=== PATIENT | female | born 1945 | race Caucasian/White ===

== ENCOUNTER 2019-09-07 15:57 | Emergency (ER) | payer MEDICARE ==
[~2019-09-07 15:57] MED LIST: EPINEPHrine 10 ML SYRINGE (0.1 MG/ML) ONE; SODIUM BICARB 8.4% 50 ML SYR (1 MEQ/ML) ONE
--- NOTE | 2019-09-07 16:27 | XR ---
EXAMINATION TYPE: XR chest 1V DATE OF EXAM: 09/07/2019 COMPARISON: NONE HISTORY: Cardiac arrest. TECHNIQUE: Single AP portable frontal supine view of the chest is obtained. FINDINGS: There is endotracheal tube at aortic knob level approximately 2 to 3 cm above ajit. There is orogastric tube terminating below diaphragm. Artifact from overlying board is present. Low lung volumes noted. No suspicious focal airspace opacit y, pleural effusion, or pneumothorax. Cardiac silhouette size upper limits of normal with atheroscler otic aorta. Osseous structures intact. IMPRESSION: 1. Orogastric tube satisfactory in position. Endotracheal tube above ajit could be pulled back 2 to 3 cm to be more ideal position. 2. Low lung volumes without acute pulmonary process.
--- NOTE | 2019-09-07 16:35 | ED ---
General Adult HPI - General Chief complaint: Cardiac Arrest/CPR Stated complaint: Cardiac Arrest Time Seen by Provider: 09/07/19 15:57 Source: EMS, RN notes reviewed, old records reviewed Mode of arrival: EMS Limitations: no limitations - History of Present Illness Initial comments: This is a 74-year-old female who has past medical history significant for lung cancer at home she became slumped in the chair and was unresponsive to the and called EMS when EMS arrived the patient was in PE a day placed a Marcel tube into the patient started doing CPR and followed a less protocol. Patient had spontaneous return of circulation on 3 different occasions but again lost the pulse. Patient arrived pulseless in PEA. We gave the patient another round of epi and some bicarb pulses returned at this point time I went out and spoke with the . indicated immediately that he did not want CPR and the patient did not want CPR and that if she was to lose her pulses we were not to intervene. I went back to the room shortly thereafter and the patient did lose her pulses again and at that point in time we did not intervene. Patient was pronounced at 1620 - Related Data Home Medications Medication Instructions Recorded Confirmed No Known Home Medications 01/11/14 01/11/14 Allergies Allergy/AdvReac Type Severity Reaction Status Date / Time No Known Allergies Allergy Verified 01/11/14 15:11 Review of Systems ROS Statement: Those systems with pertinent positive or pertinent negative responses have been documented in the HPI. ROS Other: All systems not noted in ROS Statement are negative. Past Medical History Past Medical History: Eye Disorder, Osteoarthritis (OA) Additional Past Medical History / Comment(s): CATARACT,MACULAR DEGENERATION, History of Any Multi-Drug Resistant Organisms: None Reported Past Surgical History: Section, Hernia Repair, Hysterectomy Additional Past Surgical History / Comment(s): RIGHT AND LEFT TOTAL KNEE.DILLON BRENNAN, RT EYE CATARACT REMOVED Past Anesthesia/Blood Transfusion Reactions: No Reported Reaction Past Psychological History: No Psychological Hx Reported Smoking Status: Never smoker - Past Family History Mother Family Medical History: Cancer General Exam - General Exam Comments Initial Comments: GENERAL: Patient is well-developed and well-nourished. Patient is completely unresponsive and CPR is being performed with a lupus machine EYES: Pupils were fixed and dilated and nonreactive to light PULMONARY: Patient is being bagged and has breath sounds bilaterally. CARDIOVASCULAR: Patient has no pulses and carotid or femoral area. ABDOMEN: No gross abnormalities SKIN: Skin is clear with no lesions or rashes and otherwise unremarkable. NEUROLOGIC: She is completely unresponsive. MUSCULOSKELETAL: Unable to assess PSYCHIATRIC: Normal psychiatric evaluation. Limitations: no limitations Medical Decision Making - Medical Decision Making EKG was done with a pulseless came back that showed acute WA. Patient's EKG showed a wide complex rhythm with no P waves at 52 bpm QRS is 132 QT interval 510 QTC is 474. Patient's EKG showed ST segment elevation in leads 1 and aVL and depression and T-wave inversions in all other leads. I spoke with Bryanna Jacob after the patient was pronounced and she released the body Critical Care Time Critical Care Time: Yes Total Critical Care Time: 35 Disposition Clinical Impression: Sudden cardiac Disposition: Referrals: None,Stated [Primary Care Provider] - 1-2 days Time of Disposition: 16:33 Preliminary Cause of : cardiac arrest
== END 2019-09-07 18:11 | disposition expired ==
LOC: EC 15:57
DX: I46.9 Cardiac arrest, cause unspecified (principal); I21.29 ST elevation (STEMI) myocardial infarction involving other sites; Z66 Do not resuscitate
CPT/HCPCS: 99291; 92950; 93005; 71045; J0171; 94002